=== PATIENT | female | born 1950 | race Caucasian/White ===

== ENCOUNTER → 2016-06-15 | Outpatient (CLI) | payer OTHER ==
[2016-06-15 13:13] LABS: Basophils # (A) 0.1 k/uL (0-0.2); Basophils % (A) 1 %; CHCM 32.3; Eosinophils # (A) 0.4 k/uL (0-0.7); Eosinophils % (A) 5 %; HCT 42.6 % (34.0-46.0); HDW 2.19; HGB 13.8 gm/dL (11.4-16.0); Luc # (Auto) 0.23; Luc % (Auto) 3; Lymphocytes # (A) 3.6 k/uL (1.0-4.8); Lymphocytes % (A) 43 %; MCH 30.3 pg (25.0-35.0); MCHC 32.5 g/dL (31.0-37.0); MCV 93.3 fL (80.0-100.0); Mean Platelet Volume 6.9; Monocytes # (A) 0.5 k/uL (0-1.0); Monocytes % (A) 6 %; Neutrophils # (A) 3.7 k/uL (1.3-7.7); Neutrophils % (A) 44 %; RBC 4.56 m/uL (3.80-5.40); RDW 14.1 % (11.5-15.5); WBC 8.5 k/uL (3.8-10.6); WBC (Perox) 8.33
[2016-06-15 13:23] LABS: Anion Gap 13 mmol/L; Blood Urea Nitrogen 18 mg/dL (7-17); Calcium 10.6 mg/dL (8.4-10.2); Carbon Dioxide 28 mmol/L (22-30); Chloride 100 mmol/L (98-107); Glucose 110 mg/dL (74-99); Non-African American GFR(MDRD) >60 (>60 ml/min/1.73 sqM); Potassium 4.9 mmol/L (3.5-5.1); Sodium 141 mmol/L (137-145)
== END ==
LOC: LABWHC1 12:48
PROVIDERS: ATTEND Internal Medicine Clinical Cardiac Electrophysiology
DX: I44.7 Left bundle-branch block, unspecified (principal); I47.2 Ventricular tachycardia; I50.22 Chronic systolic (congestive) heart failure; I51.3 Intracardiac thrombosis, not elsewhere classified; E05.90 Thyrotoxicosis, unspecified without thyrotoxic crisis or storm
CPT/HCPCS: 36415; 80048; 84439; 84443; 85025

== ENCOUNTER 2016-06-28 12:51 | Day surgery (SDC) | payer OTHER ==
[~2016-06-28 12:51] MED LIST: HYDROmorphone 1 MG/ML 1 ML SYRINGE IVP PRN; LACTATED RINGERS 1,000 ML IV SCH; SODIUM CHLORIDE 0.9% 1,000 ML IV SCH; ceFAZolin 2 GM in SODIUM CHLORIDE 0.9% 100 ML IVPB ONE
[2016-06-28] MEDS ORDERED: MIDAZOLAM 2 MG/2 ML VIAL ONE (14:05)
[2016-06-28] MEDS ORDERED: LIDOCAINE 1% INJ 10MG/ML (20 ML MDV) ONE (14:05)
[2016-06-28] MEDS ORDERED: ePHEDrine 50 MG/ML 1 ML AMP ONE (14:05)
[2016-06-28] MEDS ORDERED: fentaNYL (PF) 50 MCG/ML 2 ML AMP ONE (14:05)
[2016-06-28] MEDS ORDERED: PROPOFOL 10 MG/ML 20 ML VIAL IV ONE (14:05)
[2016-06-28] MEDS ORDERED: LIDOCAINE 1% INJ 10MG/ML (20 ML MDV) SQ ONE ×2 (14:55)
[2016-06-28] MEDS: ceFAZolin 1,000 MG in SODIUM CHLORIDE 0.9% IRRIGATIO 250 ML IRRIGATION ONE ×3 (14:55→16:10)
[2016-06-28] MEDS ORDERED: ACETAMINOPHEN IV (For NPO) 1,000 MG in EMPTY BAG 1 BAG IVPB ONE (16:48)
[2016-06-28] MEDS ORDERED: ceFAZolin 2 GM in SODIUM CHLORIDE 0.9% 100 ML IVPB SCH (17:00)
--- NOTE | 2016-06-28 17:47 | CE ---
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 LV function has not improved despite medical treatment for greater than 4 months. Cardiac MRI showed a dilated left ventricle with severe LV dysfunction. She also has a possible small re-thrombus and is on Xarelto. QRS width is 133 ms. She was brought in for a Bi-V ICD implant for heart failure management. She has class II heart failure symptoms as well as management of risk of sudden cardiac . The patient is brought to the EP lab in a fasting state. Written informed consent was obtained procedure. The left shoulder area was prepped and draped as per protocol. 1% Lidocaine was used for local anesthesia. A 4 cm incision was made parallel to the deltopectoral groove about 1.5 cm medial to it. The incision was carried down to the level of the pectoralis muscle. A subfascial pocket was made. Hemostasis was assured. Axillary vein was accessed at 3 separate points under fluoroscopy and via these, 3 leads were positioned in the right heart. Three leads were positioned. The LV lead was positioned in the anterolateral vein, [employer] 1458Q 75 cm in length and serial [id number]. Pacing thresholds are excellent in both poles I and II, 0.75 v at 0.5 ms, pacing impedance of 730 ohms. The 10 v test was negative. The RV lead was [employer] model #7122Q, 58 cm in length, and serial #[id number]. This was positioned in the low RV septum and screwed in. R waves were 11.8 mV, pacing threshold 0.5 v at 0.5 ms, pacing impedance was 760 ohms. The 10 v test was negative. The atrial lead was a tined [employer] model #1944, 52 cm in length and serial #[id number]. This was positioned in the right atrial appendage. P waves were 4 mV, threshold 0.5 v at 0.5 ms, pacing impedance of 450 ohms. The 10 v test was negative. The leads were secured to the underlying pectoralis fascia after removing the sheaths. The lead positioned and stable and this was connected to the generator. [employer], model number AK0426-84K, serial #[id number]. Lead and the generator were then placed in the subfascial pocket and the wound was closed in 3 layers and dressed per protocol. DFT testing was deferred at this point. RESULT: Successful dual-chamber biventricular ICD for management of heart failure, severe nonischemic cardiomyopathy with a QRS width of 133 ms. No improvement with medical treatment for greater than 4 months and fast nonsustained VT recurrent. PLAN: DFT testing in 3 months, IV antibiotics. Continue cardiac medications and heart failure medications.
--- NOTE | 2016-06-28 17:49 | LTR ---
June 28, 2016 RE: Neida Haq Ayad Dear Dr. Cain: I had the pleasure of seeing Neida Haq in electrophysiology follow-up. As you know Neida's LV has now shown any improvement in the systolic function and she underwent successful implantation of a Bi-V ICD. Hopefully this results in improvement in her LV function in the future. I will continue her medications without any changes at this time. Thank you for entrusting me with the care of your patient. Warm regards. Sincerely, RAMON MATA MD
[2016-06-28] MEDS: HYDROcodone/APAP 5-325MG 1 EACH TAB PO PRN (20:12)
[2016-06-28] MEDS ORDERED: RIVAROXABAN 10 MG TAB PO SCH (21:00)
[2016-06-28] MEDS: ceFAZolin 2 GM in SODIUM CHLORIDE 0.9% 100 ML IVPB SCH (21:07)
[2016-06-29] MEDS: ceFAZolin 2 GM in SODIUM CHLORIDE 0.9% 100 ML IVPB SCH ×3 (02:15→14:00)
[2016-06-29] MEDS ORDERED: HYDROcodone/APAP 5-325MG 1 EACH TAB ONE (04:00)
[2016-06-29] MEDS ORDERED: LEVOTHYROXINE 112 MCG TAB PO SCH (06:30)
[2016-06-29] MEDS: ACETAMINOPHEN TAB 325 MG TAB PO PRN ×2 (08:36→14:40)
[2016-06-29] MEDS ORDERED: LISINOPRIL 2.5 MG TAB PO SCH (09:00)
[2016-06-29] MEDS ORDERED: FUROSEMIDE 20 MG TAB PO SCH (09:00)
[2016-06-29] MEDS ORDERED: SPIRONOLACTONE 25 MG TAB PO SCH (09:00)
[2016-06-29] MEDS ORDERED: METOPROLOL SUCCINATE (ER) 25 MG TAB.ER.24H PO SCH (09:00)
[2016-06-29] MEDS ORDERED: PRAVASTATIN SODIUM 20 MG TAB PO SCH (09:00)
[2016-06-29 09:22] VITALS: RESP 16
--- NOTE | 2016-06-29 09:59 | DS ---
DATE OF ADMISSION: 06/28/2016 DATE OF DISCHARGE: Neida Haq is a 66-year-old female who underwent a biventricular ICD yesterday. She is doing well. ICD site is healing well. There is no hematoma. There is no ( ). Breath sounds are normal. Heart sounds S1, S2 normal. No S3 gallop. Abdomen is soft and nontender. Extremities are warm. Breath sounds are equal bilaterally. Vitals are stable. Blood pressure is 98/53 mmHg, which is at her baseline. She is afebrile 98.3 degrees Fahrenheit. Pulse rate in 80s IMPRESSION: 1. Severe nonischemic cardiomyopathy. 2. Left bundle branch block. 3. Class II heart failure. 4. 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 This is not improved despite greater than 4 months of medical treatment. 5. Normal coronary arteries. PLAN: Discharge home after completion of IV antibiotics, follow up in the office in 5 days.
--- NOTE | 2016-06-29 11:16 | XR ---
EXAMINATION TYPE: XR chest 2V DATE OF EXAM: 06/29/2016 6:25 AM COMPARISON: None INDICATION: Lead placement check TECHNIQUE: 2 view chest FINDINGS: The heart size is normal. The pulmonary vasculature is normal. The lungs are clear. Electronic device overlies left chest. 3 leads are present, no pneumothorax is evident IMPRESSION: 1. No pneumothorax post electronic device placement.
[2016-06-29 12:46] VITALS: BP 86/55; PULSE 90; TEMP 97.9
[2016-06-29 13:37] VITALS: BMI 25.6
[2016-06-29] MEDS: HYDROcodone/APAP 5-325MG 1 EACH TAB PO PRN (14:00)
== END 2016-06-29 15:55 | disposition home or self-care (01) ==
LOC: CATHEP 12:51 → 3OBS 16:39 → CATHEP 06-29 15:55
PROVIDERS: ATTEND Internal Medicine Clinical Cardiac Electrophysiology
DX: I47.2 Ventricular tachycardia (principal); I50.22 Chronic systolic (congestive) heart failure; Z00.6 Encounter for examination for normal comparison and control in clinical research program; B33.24 Viral cardiomyopathy; I24.0 Acute coronary thrombosis not resulting in myocardial infarction; I44.7 Left bundle-branch block, unspecified; Z79.01 Long term (current) use of anticoagulants; Z79.899 Other long term (current) drug therapy; Z87.891 Personal history of nicotine dependence; E03.9 Hypothyroidism, unspecified; E78.5 Hyperlipidemia, unspecified
CPT/HCPCS: 33225; 33249; 71020; C1769 ×3; C1892 ×2; C1730; C1777; C1900; C1898; C1882; J2250; J0690 ×3; J2001; J3010; J2704

== ENCOUNTER 2016-07-06 09:21 | Day surgery (SDC) | payer OTHER ==
[2016-07-06] MEDS ORDERED: ceFAZolin 1,000 MG in SODIUM CHLORIDE 0.9% IRRIGATIO 250 ML IRRIGATION ONE (10:13)
[2016-07-06] MEDS ORDERED: ceFAZolin 2 GM in SODIUM CHLORIDE 0.9% 100 ML IVPB ONE (10:13)
[2016-07-06] MEDS ORDERED: FAMOTIDINE 20 MG/2 ML VIAL IVP ONE (14:30)
[2016-07-06] MEDS ORDERED: PROPOFOL 10 MG/ML 20 ML VIAL IV ONE (14:42)
[2016-07-06] MEDS ORDERED: fentaNYL (PF) 50 MCG/ML 2 ML AMP ONE (14:42)
[2016-07-06] MEDS ORDERED: HYDROmorphone (PF) 1 MG/ML ONE (14:42)
[2016-07-06] MEDS ORDERED: MIDAZOLAM 2 MG/2 ML VIAL ONE (14:42)
[2016-07-06] MEDS ORDERED: IV FLUID CONTINUATION 800 ML IV ONE (14:51)
[2016-07-06] MEDS ORDERED: BUPIVACAINE LIPOSOME MISCELLANE STA ×2 (15:10)
[2016-07-06] MEDS ORDERED: SODIUM CHLORIDE 0.9% MISCELLANE STA ×2 (15:10)
[2016-07-06] MEDS ORDERED: LIDOCAINE 1% INJ 10MG/ML (20 ML MDV) SQ ONE ×2 (15:25→15:27)
--- NOTE | 2016-07-06 17:31 | P.HPCAR ---
History of Present Illness Update to my H&P Patient has nonischemic cardio myopathy congestive heart failure class II chronic systolic dysfunction on him and Bi V ICD successfully about a week back. She came to the office with diaphragmatic stimulation of the right diaphragm and P waves are diminutive there was no atrial capture. There is variability in the R-wave sensing especially if she was brought to the lab today and fluoroscopy revealed that the atrial lead was just below the SVC outside the right atrial appendage. Even the right ventricular lead had lost its he'll and appeared to have pulled back approximately the LV lead was stable intraoperatively R waves of variable although the threshold was excellent.. The patient had been excusing vomiting and retching for the last several days Please see full dictation of the procedure note Physical Exam Vitals: Vital Signs Temp Pulse Resp BP Pulse Ox 07/06/16 15:30 90 16 134/77 98 07/06/16 14:56 97.9 F 76 20 103/63 95 07/06/16 09:34 97.3 F L 74 20 103/63 97 Intake and Output 07/06/16 07/06/16 07/06/16 06:59 14:59 22:59 Intake Total 100 Balance 100 Intake: IV 100 Other: Weight 65.821 kg Patient Weight 07/07/16 06:59 Weight 65.821 kg Physical Examination Vital Signs Temp Pulse Resp BP Pulse Ox 07/06/16 15:30 90 16 134/77 98 07/06/16 14:56 97.9 F 76 20 103/63 95 07/06/16 09:34 97.3 F L 74 20 103/63 97 Intake and Output 07/06/16 07/06/16 07/06/16 06:59 14:59 22:59 Intake Total 100 Balance 100 Intake: IV 100 Other: Weight 65.821 kg Patient Weight 07/07/16 06:59 Weight 65.821 kg Results Current Medications Generic Name Dose Route Start Last Admin Trade Name Freq PRN Reason Stop Dose Admin Acetaminophen 650 mg 07/06/16 17:27 Tylenol Tab PO Q6HR PRN Mild Pain Famotidine 20 mg 07/08/16 14:30 Pepcid IV DAILY BERNARDA Furosemide 20 mg 07/07/16 09:00 Lasix PO DAILY B[facility]ARDA Sodium Chloride 1,000 mls @ 20 mls/hr 07/06/16 10:15 Saline 0.9% IV .Q24H BERNARDA Cefazolin Sodium 2 gm/ Sodium 100 mls @ 100 mls/hr 07/06/16 17:30 Chloride IVPB 07/07/16 12:29 Q6H [facility] Levothyroxine Sodium 112 mcg 07/07/16 09:00 Synthroid PO DAILY [facility] Lisinopril 2.5 mg 07/07/16 09:00 Zestril PO DAILY [facility] Metoprolol Succinate 25 mg 07/07/16 09:00 Toprol Xl PO DAILY [facility] Non-Formulary Medication 20 mg 07/06/16 21:00 Rivaroxaban [Xarelto] PO HS [facility] Pravastatin Sodium 20 mg 07/07/16 09:00 Pravachol PO DAILY [facility] Sodium Chloride 10 ml 07/06/16 21:00 Saline Flush IV Q12HR [facility] Spironolactone 25 mg 07/07/16 09:00 Aldactone PO DAILY [facility] Intake and Output 07/06/16 07/06/16 07/06/16 06:59 14:59 22:59 Intake Total 100 Balance 100 Intake: IV 100 Other: Weight 65.821 kg Patient Weight 07/07/16 06:59 Weight 65.821 kg
[2016-07-06] MEDS: SODIUM CHLORIDE 0.9% 1,000 ML IV SCH (18:07)
--- NOTE | 2016-07-06 18:14 | PCN ---
DATE OF PROCEDURE: This patient is a 66-year-old female with non-ischemic cardiomyopathy who underwent a biventricular ICD whose atrial lead as well as RV ICD lead appeared to have pulled back significantly on fluoroscopy. The left pectoral area was prepped and draped as per protocol. Lidocaine 1% was used for local anesthesia. Incision was made directly over the previous surgical site and carried down to the level of the generator. The generator was explanted. The atrial lead and the RV lead were freed. The atrial lead was repositioned in the right atrial appendage, making sure that it was in a very stable position, and thereafter it was secured to the underlying pectoralis fascia with 2 non-absorbable sutures. The RV lead was gently pushed in because it had completely lost its ( ) however, the thresholds were excellent. The sensing was very variable and low, up to 3 mV, and the lead was unscrewed and repositioned. However, when an attempt was made to screw in the lead, the screw would not deploy despite multiple attempts. Therefore this lead was removed using the insulation of the lead and a wire under the insulation. Access was ( ) the venous circulation and the same access was used. A sheath was placed and a new RV lead was placed in the right septum. This was a [employer], model #7122Q, 58 cm in length and serial #[id number]. The R waves were 11.8 mV. Pacing impedance was 690 ohms, pacing threshold 0.25 v at 0.5 ms. These were screwed into the underlying pectoralis fascia. Lead was secured to the underlying pectoralis fascia using 2 non-absorbable sutures. Pocket was irrigated with antibiotic solution and the leads were connected to the original generator and then re-implanted and secured to the underlying pectoralis muscle. The wound was closed in 3 layers and dressed per protocol. DFT TESTING UNDER ANESTHESIA: A DC ( ) shock was used to induce ventricular fibrillation. This was adequately and appropriately detected at least sensitivity and successfully internally defibrillated with a 20-joule shock. A 10-joule shock failed. The charge time was 3.5 seconds, shocking impedance 55 ohms. No post-shock noise. RESULT: 1. Successful repositioning of the tined atrial lead in the right atrial appendage. 2. Extraction of the chronic RV ICD lead which had also been pulled back and dislodged. Re-implantation of a new ICD lead. 3. DFT testing under anesthesia. The patient tolerated the procedure well without any acute complications.
[2016-07-06] MEDS ORDERED: ONDANSETRON 4 MG/2 ML VIAL IVP PRN (19:59)
[2016-07-06] MEDS ORDERED: RIVAROXABAN 10 MG TAB PO SCH (21:00)
[2016-07-06] MEDS: ceFAZolin 2 GM in SODIUM CHLORIDE 0.9% 100 ML IVPB SCH (22:12)
[2016-07-06] MEDS: ACETAMINOPHEN TAB 325 MG TAB PO PRN (23:15)
[2016-07-07] MEDS: ACETAMINOPHEN TAB 325 MG TAB PO PRN ×3 (04:16→15:34)
[2016-07-07] MEDS: ceFAZolin 2 GM in SODIUM CHLORIDE 0.9% 100 ML IVPB SCH ×3 (04:16→14:10)
[2016-07-07] MEDS ORDERED: LEVOTHYROXINE 112 MCG TAB PO SCH (06:30)
--- NOTE | 2016-07-07 06:51 | XR ---
EXAMINATION TYPE: XR chest 2V DATE OF EXAM: 07/07/2016 6:35 AM HISTORY: Lead placement check. REFERENCE: Previous study dated 06/29/2016. FINDINGS: Multilead pacing device is in place on the left. Approximately overlies the right atrium an d the 2 distal leads overlies the right ventricle. This is unchanged from previous. I do not see evid ence of pneumothorax. Lungs are clear. The heart is mildly prominent. Pleural spaces are clear. IMPRESSION: MILD CARDIOMEGALY.
[2016-07-07] MEDS: METOPROLOL SUCCINATE (ER) 25 MG TAB.ER.24H PO SCH ×2 (08:03→09:24)
[2016-07-07] MEDS ORDERED: PRAVASTATIN SODIUM 20 MG TAB PO SCH (09:00)
[2016-07-07] MEDS ORDERED: SPIRONOLACTONE 25 MG TAB PO SCH (09:00)
[2016-07-07] MEDS ORDERED: LISINOPRIL 2.5 MG TAB PO SCH (09:00)
[2016-07-07] MEDS ORDERED: FUROSEMIDE 20 MG TAB PO SCH (09:00)
--- NOTE | 2016-07-07 10:00 | PN ---
Mrs. Haq underwent reposition of the atrial lead, extraction of the chronic RV lead, implantation of a new RV lead, both leads had pulled out and this was taken care of. Today she is doing well. There is no swelling. Heart sounds are normal. Breath sounds are normal. No rhonchi. No crackles. The chest x-ray is within normal limits. No pneumothorax. She is afebrile, 98.1 degrees Fahrenheit, pulse rate is in the 60s. Blood pressure is 141/62 mmHg. IMPRESSION: Severe nonischemic cardiomyopathy, status post bi-V ICD, left bundle branch block pattern and heart failure. PLAN: Discharge after IV antibiotics and device interrogation. Will see her again next week.
[2016-07-07 10:29] VITALS: BMI 26.5
[2016-07-07] MEDS: SODIUM CHLORIDE 0.9% 1,000 ML IV SCH (15:25)
[2016-07-07 16:13] VITALS: BP 104/59; PULSE 78; RESP 16; TEMP 98.7
[2016-07-08] MEDS ORDERED: FAMOTIDINE 20 MG/2 ML VIAL IV SCH (14:30)
== END 2016-07-07 16:35 | disposition home or self-care (01) ==
LOC: CATHEP 09:21 → 3OBS 11:55 → CATHEP 07-07 16:35
PROVIDERS: ATTEND Internal Medicine Clinical Cardiac Electrophysiology
DX: I42.8 Other cardiomyopathies (principal); T82.120A Displacement of cardiac electrode, initial encounter; I11.0 Hypertensive heart disease with heart failure; I50.22 Chronic systolic (congestive) heart failure; E78.5 Hyperlipidemia, unspecified; E07.9 Disorder of thyroid, unspecified; Z79.01 Long term (current) use of anticoagulants; Z79.899 Other long term (current) drug therapy
CPT/HCPCS: 93641; 33216; 33215; 33244; 76000; 71020; C1769 ×3; C1892; C1777; J2250; J0690 ×3; J2001; J3010; J1170; C9290; J2704; 33272

== ENCOUNTER → 2016-11-01 | Outpatient (CLI) | payer OTHER ==
[2016-11-01 07:42] LABS: CH 30.8; CHCM 32.8; HCT 37.6 % (34.0-46.0); HDW 2.27; HGB 12.5 gm/dL (11.4-16.0); MCH 31.3 pg (25.0-35.0); MCHC 33.2 g/dL (31.0-37.0); MCV 94.3 fL (80.0-100.0); Mean Platelet Volume 7.3; RBC 3.99 m/uL (3.80-5.40); RDW 13.2 % (11.5-15.5); WBC 8.3 k/uL (3.8-10.6)
[2016-11-01 11:22] LABS: Anion Gap 11 mmol/L; Blood Urea Nitrogen 17 mg/dL (7-17); Calcium 10.2 mg/dL (8.4-10.2); Carbon Dioxide 26 mmol/L (22-30); Chloride 104 mmol/L (98-107); Glucose 110 mg/dL (74-99); Non-African American GFR(MDRD) >60 (>60 ml/min/1.73 sqM); Potassium 4.7 mmol/L (3.5-5.1); Sodium 141 mmol/L (137-145)
== END | disposition home or self-care (01) ==
LOC: LABWHC1 06:45
PROVIDERS: ATTEND Internal Medicine Clinical Cardiac Electrophysiology
DX: I50.22 Chronic systolic (congestive) heart failure (principal); I47.2 Ventricular tachycardia
CPT/HCPCS: 36415; 80048; 85027

== ENCOUNTER 2016-11-15 06:15 | Day surgery (SDC) | payer OTHER ==
[2016-11-11 09:14] VITALS: BMI 24.5
[2016-11-15] MEDS ORDERED: SODIUM CHLORIDE 0.9% 1,000 ML IV SCH (07:02)
[2016-11-15] MEDS ORDERED: PROPOFOL 10 MG/ML 20 ML VIAL IV ONE (07:30)
[2016-11-15 07:46] LABS: Glucose,Whole Blood 112 mg/dL (75-99)
--- NOTE | 2016-11-15 09:07 | CE ---
CARDIAC ELECTROPHYSIOLOGY REPORT ICD TESTING Neida Haq is a 66-year-old female with nonischemic cardiomyopathy, who underwent a Bi V ICD several months back and had a high DFT. She was brought in again after 4 months of Bi V pacing for repeat DFT testing under anesthesia. She has a [employer] MP 3369-40 Q [employer] D device. She is in sinus rhythm. P waves 4.6 mV, pacing threshold 0.625 V at 0.5 milliseconds. Pacing impedance of 480 ohms. The R-waves are 9.1 mV, pacing threshold 0.5 V at 0.5 milliseconds. Pacing impedance of 440 ohms. LV threshold was 1.4 V at 0.5 milliseconds. Pacing impedance of 400 ohms. High-voltage impedance was 68 ohms. DFT testing was first performed in total orientation. VF was induced appropriately detected. A 15 joule shock was unsuccessful followed by a 20 joule shock which was also unsuccessful. Shock impedance 61 ohms. No post shock noise. After waiting for about a minute and 15 seconds, DFT testing was once again performed in the kirt configuration. Once again VF was appropriately detected. But 20 joule shock in kirt configuration was unsuccessful and a 30 joule shock was also unsuccessful. On both occasions, external defibrillation at to be employed in both configurations. The device was then reprogrammed. The detection intervals were shortened for the VT-2 and VF zones. First cardioversion at 36 joules for the VT-1 zone. First cardioversion for the VT-2 zone was programmed at 36 joules plus VF defibrillation was 36 joules followed by maximum output. PLAN: Patient has not demonstrated any improvement in her DFT following Bi V pacing. I would reassess her heart failure status once again. I will reorder a 2-D echo and Doppler study during Bi V pacing as well as an exercise stress test to maximum capacity to assess her functional heart failure status. She is on appropriate medical treatment in low doses since her blood pressure is low normal. This was discussed with the patient. She is agreeable with the plan. MMODL / IJN: [id number] /
[2016-11-15 10:13] VITALS: PULSE 78
[2016-11-15 10:14] VITALS: BP 102/67; RESP 20
== END 2016-11-15 10:00 | disposition home or self-care (01) ==
LOC: CATHEP 06:15
PROVIDERS: ATTEND Internal Medicine Clinical Cardiac Electrophysiology
DX: I42.8 Other cardiomyopathies (principal); Z45.02 Encounter for adjustment and management of automatic implantable cardiac defibrillator; I50.22 Chronic systolic (congestive) heart failure; E11.9 Type 2 diabetes mellitus without complications; Z79.84 Long term (current) use of oral hypoglycemic drugs; I47.2 Ventricular tachycardia; I44.7 Left bundle-branch block, unspecified; Z87.891 Personal history of nicotine dependence; Z79.01 Long term (current) use of anticoagulants; E78.5 Hyperlipidemia, unspecified; E03.9 Hypothyroidism, unspecified; Z79.899 Other long term (current) drug therapy
CPT/HCPCS: 93642; J2704

== ENCOUNTER → 2017-02-18 | Outpatient (CLI) | payer OTHER ==
[2017-02-18 14:00] LABS: Basophils # (A) 0.1 k/uL (0-0.2); Basophils % (A) 1 %; Eosinophils # (A) 0.3 k/uL (0-0.7); Eosinophils % (A) 4 %; HCT 41.2 % (34.0-46.0); HGB 13.6 gm/dL (11.4-16.0); Lymphocytes # (A) 2.6 k/uL (1.0-4.8); Lymphocytes % (A) 37 %; MCH 30.9 pg (25.0-35.0); MCHC 32.9 g/dL (31.0-37.0); MCV 93.9 fL (80.0-100.0); Mean Platelet Volume 8.2; Monocytes # (A) 0.5 k/uL (0-1.0); Monocytes % (A) 7 %; Neutrophils # (A) 3.5 k/uL (1.3-7.7); Neutrophils % (A) 49 %; Platelet Count 189 k/uL (150-450); RBC 4.39 m/uL (3.80-5.40); RDW 14.4 % (11.5-15.5); WBC 7.1 k/uL (3.8-10.6)
[2017-02-18 14:13] LABS: ALT 34 U/L (9-52); AST 26 U/L (14-36); Albumin 4.5 g/dL (3.5-5.0); Alkaline Phosphatase 66 U/L (38-126); Anion Gap 12 mmol/L; Bilirubin, Delta 0.4 mg/dL (0.0-0.2); Bilirubin,Unconjugated 1.2 mg/dL (0.0-1.1); Blood Urea Nitrogen 20 mg/dL (7-17); Calcium 9.9 mg/dL (8.4-10.2); Carbon Dioxide 27 mmol/L (22-30); Chloride 100 mmol/L (98-107); Glucose 94 mg/dL (74-99); Magnesium 1.9 mg/dL (1.6-2.3); Potassium 3.9 mmol/L (3.5-5.1); Sodium 139 mmol/L (137-145); Total Bilirubin 1.6 mg/dL (0.2-1.3); Total Protein 7.4 g/dL (6.3-8.2)
[2017-02-18 14:16] LABS: INR 1.6 (<1.2); Prothrombin Time 14.5 sec (9.0-12.0)
== END | disposition home or self-care (01) ==
LOC: LABWHC1 13:23
PROVIDERS: ATTEND Internal Medicine
DX: I50.9 Heart failure, unspecified (principal)
CPT/HCPCS: 36415; 80048; 80076; 83735; 85025; 85610

== ENCOUNTER → 2017-04-25 | Day surgery (SDC) | payer OTHER ==
[2017-04-20 16:04] VITALS: BMI 24.8
[~2017-04-25] MED LIST changes: -HYDROmorphone 1 MG/ML 1 ML SYRINGE IVP PRN; -LACTATED RINGERS 1,000 ML IV SCH; -ceFAZolin 2 GM in SODIUM CHLORIDE 0.9% 100 ML IVPB ONE
[2017-04-25 11:41] VITALS: BP 95/55; PULSE 76; RESP 18; TEMP 98
[2017-04-25 11:47] LABS: Glucose,Whole Blood 109 mg/dL (75-99)
[2017-04-25 12:08] LABS: Calcium 10.3 mg/dL (8.4-10.2); Potassium 4.3 mmol/L (3.5-5.1)
[2017-04-25] MEDS: IOHEXOL 350 MG/ML 50ML BOTTLE MISCELLANE ONE ×2 (13:04→13:29)
--- NOTE | 2017-04-25 13:39 | P.PCN ---
Preoperative Diagnosis: Cinefluoroscopy of the leads reveal LV lead in anterolateral vein stable position LV 1 pacing electrode in the mid LV position, lateral wall Currently using LV 3 which is quite basal in location Previous CS venogram reviewed. Diminutive posterior lateral and lateral veins. Large anterolateral vein that was originally tolerated Device interrogated thresholds interrogated biventricular ICD Baseline underlying left bundle branch block QRS width of 133 ms, NE interval 180 ms Simultaneous LV RV pacing twice the narrowest QRS when using both LV 3 and LV 1 as well as multi site In addition although the separation is greater than 4 LV to an LV 3, pacing from LV 1 to RV coil in the simultaneous configuration avoid the narrowest QRS of 146 ms Multi site programming provided LV 1 followed by a 5 ms delay LV to followed by a 5 ms delay to RV coil. Paced QRS width 148 ms AV delay reprogrammed 130/150 ms Left upper extremity venogram reveals patent cephalic vein but an occluded axillary/subclavian vein with large collaterals Left axillary vein is occluded prior to the entry of the cephalic vein and the subclavian/innominate vein is occluded and there is a large collateral to the SVC
== END | disposition home or self-care (01) ==
LOC: CATHEP 11:02
PROVIDERS: ATTEND Internal Medicine Clinical Cardiac Electrophysiology
DX: I44.7 Left bundle-branch block, unspecified (principal); Z45.02 Encounter for adjustment and management of automatic implantable cardiac defibrillator; I82.612 Acute embolism and thrombosis of superficial veins of left upper extremity; I82.A12 Acute embolism and thrombosis of left axillary vein; I82.B12 Acute embolism and thrombosis of left subclavian vein; I42.8 Other cardiomyopathies; I50.22 Chronic systolic (congestive) heart failure; E78.5 Hyperlipidemia, unspecified; E03.9 Hypothyroidism, unspecified; Z87.891 Personal history of nicotine dependence; Z79.01 Long term (current) use of anticoagulants; Z79.84 Long term (current) use of oral hypoglycemic drugs; Z79.899 Other long term (current) drug therapy
CPT/HCPCS: 93642; 76000; 80048; Q9967

== ENCOUNTER → 2017-08-15 | Outpatient (CLI) | payer OTHER ==
--- NOTE | 2017-08-16 08:46 | MM ---
Reason for exam: screening (asymptomatic). Last mammogram was performed 1 year and 8 months ago. History: Patient is postmenopausal, has history of breast cancer at age 52, and has history of high-risk lesion on a previous biopsy at age 52. Family history of premenopausal breast cancer in sister at age 47. Malignant mastectomy of the right breast, April 18, 2002. Malignant stereotactic core biopsy of the right breast, April 04, 2002. Chemotherapy, 2002. Core biopsy of the right breast. Took tamoxifen for 5 years beginning at age 52. Physical Findings: A clinical breast exam by your physician is recommended on an annual basis and results should be correlated with mammographic findings. MG Screen Luis Unilateral W/Cad CC, MLO, XCCL, and XCCM view(s) were taken of the left breast. Prior study comparison: December 29, 2015, bilateral MG screening mammo w CAD. November 21, 2014, left breast MG diagnostic mammo LT w CAD. The breast tissue is heterogeneously dense. This may lower the sensitivity of mammography. Finding: There are typically benign calcifications in the left breast. There is a chronic nodularity in the left breast. No significant changes in finding since December 29, 2015 and November 21, 2014. ASSESSMENT: Benign, BI-RAD 2 RECOMMENDATION: Routine screening mammogram of the left breast in 1 year.
== END | disposition home or self-care (01) ==
LOC: RADMAMWWP 08:03
PROVIDERS: ATTEND Family Medicine
DX: Z12.31 Encounter for screening mammogram for malignant neoplasm of breast (principal); Z80.3 Family history of malignant neoplasm of breast; Z90.11 Acquired absence of right breast and nipple
CPT/HCPCS: 77067